=== PATIENT | male | born 1930 | race Caucasian/White ===

== ENCOUNTER 2018-03-04 11:20 | Inpatient (IN) ==
[2018-03-04 12:30] LABS: Basophils % 0.3 % (0.0-0.8); Eosinophils # 0.5 10*3/uL (0.0-0.87); Eosinophils % 4.3 % (0.00-10.9); Hematocrit 19.1 VOL% (42.0-52.0); Immature Granulocytes % 0.3 %; Immature Granulocytes Absolute 0.04 #; Lymphocytes # 2.1 10*3/uL (1.4-4.0); Lymphocytes % 16.8 % (21.2-54.2); Mean Corpuscular HGB Conc 27.2 GM/DL (32-36); Mean Corpuscular Hemoglobin 18 PG (27-34); Mean Corpuscular Volume 65.6 FL (87-102); Mean Platelet Volume 9.6 FL (9.6-12.0); Monocytes # 1.6 10*3/uL (0.11-0.8); NRBC # 0.02 10*3/uL; Neutrophils % 65.3 % (38.7-73.9); Platelet Count 308 T/CUMM (130-400); Red Blood Count 2.91 MC/CUMM (3.8-5.5); Red Cell Distribution Width 16.2 % (9.3-17.3); White Blood Count 12.2 T/CUMM (4-12)
[2018-03-04 12:35] LABS: Hemoglobin 5.2 GM/DL (14.0-18.0)
[2018-03-04 12:44] LABS: PT Patient Result 11.2 SECS; Partial Thromboplastin Time 25.1 SECS (0-40)
[2018-03-04 12:54] LABS: Lactic Acid 1.2 MMOL/L (0.4-2.0)
[2018-03-04] MEDS ORDERED: MEROPENEM 1,000 MG in SODIUM CHLORIDE 0.9% 100 ML IV STA (12:55)
[2018-03-04] MEDS ORDERED: SODIUM CHLORIDE 0.9% 1,000 ML IV STA (13:05)
[2018-03-04 13:24] LABS: Bilirubin,Total 0.6 MG/DL (0.2-1.0); Calcium 8.7 MG/DL (8.5-10.1); Potassium 4.2 MMOL/L (3.5-5.1); Total Protein 7.5 G/DL (6.4-8.3)
[2018-03-04] MEDS ORDERED: ONDANSETRON 4 MG/2 ML VIAL IV PRN (14:23)
[2018-03-04 14:25] LABS: Apearance,Urine Slightly Hazy (Clear); Bilirubin,Urine Negative (Negative); Blood, Urine Negative (Negative); Glucose,Urine (UA) Negative (Negative); Ketones,Urine Negative (Negative); Nitrite,Urine Negative (Negative); Protein,Urine Negative; RBC,Urine 1 /HPF (0-4); Urine Color Yellow (Yellow); Urine Specific Gravity 1.013 (1.001-1.035); Urine Urobilinogen < 2.0 EU/DL (0.2-1.0); WBC,Urine <1 /HPF (0-6)
[2018-03-04] MEDS ORDERED: ENOXAPARIN 30 MG/0.3 ML SYRINGE SUBCUT SCH (15:00)
[2018-03-04 15:05] LABS: Anisocytosis 1+; Poikilocytosis 1+
[2018-03-04 15:06] LABS: Hypochromasia 1+; Platelet Estimate Normal; Polychromasia Few; Spherocytes 1+
[2018-03-04] MEDS: LEVOFLOXACIN INJ 500 MG in PREMIX 1 EACH IV SCH (15:10)
[2018-03-04] MEDS: SODIUM CHLORIDE 0.9% 1,000 ML IV PRN (15:22)
[2018-03-04] MEDS ORDERED: DOXYLAMINE SUCCINATE 25 MG PO PRN (15:23)
[2018-03-04] MEDS ORDERED: NIFEdipine 10 MG CAPSULE PO PRN (15:27)
[2018-03-04] MEDS: PANTOPRAZOLE 40 MG TABLET PO SCH ×2 (15:43→20:40)
[2018-03-04] MEDS ORDERED: RACEPINEPHRINE 0.5 ML NEB RESP TX PRN (16:53)
[2018-03-04] MEDS: GABAPENTIN 400 MG CAPSULE PO SCH (20:40)
[2018-03-04] MEDS: ACETAMINOPHEN 325 MG TABLET PO PRN (20:41)
[2018-03-04] MEDS: MEROPENEM 1,000 MG in SODIUM CHLORIDE 0.9% 100 ML IV SCH (20:42)
[2018-03-04] MEDS: traMADol 50 MG TABLET PO PRN (20:43)
[2018-03-04] MEDS: LORazepam 1 MG TABLET PO PRN (20:43)
[2018-03-05 02:19] LABS: Hematocrit 24.9 VOL% (42.0-52.0); Hemoglobin 7.5 GM/DL (14.0-18.0)
[2018-03-05] MEDS: MEROPENEM 1,000 MG in SODIUM CHLORIDE 0.9% 100 ML IV SCH ×3 (04:31→21:01)
[2018-03-05] MEDS: SODIUM CHLORIDE 0.9% 1,000 ML IV PRN (05:15)
[2018-03-05 05:19] LABS: Basophils # 0.1 10*3/uL (0.0-0.2); Basophils % 0.5 % (0.0-0.8); Eosinophils # 0.5 10*3/uL (0.0-0.87); Eosinophils % 4.2 % (0.00-10.9); Hematocrit 26.8 VOL% (42.0-52.0); Hemoglobin 7.9 GM/DL (14.0-18.0); Immature Granulocytes % 0.5 %; Immature Granulocytes Absolute 0.06 #; Lymphocytes # 2.1 10*3/uL (1.4-4.0); Lymphocytes % 17.7 % (21.2-54.2); Mean Corpuscular HGB Conc 29.5 GM/DL (32-36); Mean Corpuscular Hemoglobin 21 PG (27-34); Mean Corpuscular Volume 72.6 FL (87-102); Mean Platelet Volume 9.4 FL (9.6-12.0); Monocytes # 1.2 10*3/uL (0.11-0.8); Monocytes % 10.5 % (1.7-12.7); NRBC # 0.03 10*3/uL; Neutrophils # 7.9 10*3/uL (1.4-7.4); Neutrophils % 66.6 % (38.7-73.9); Platelet Count 258 T/CUMM (130-400); Red Blood Count 3.69 MC/CUMM (3.8-5.5); Red Cell Distribution Width 21.2 % (9.3-17.3); White Blood Count 11.8 T/CUMM (4-12)
[2018-03-05 05:35] LABS: Lactic Acid 0.8 MMOL/L (0.4-2.0)
[2018-03-05 05:37] LABS: Calcium 8.4 MG/DL (8.5-10.1); Potassium 4.2 MMOL/L (3.5-5.1); Troponin I 0.016 NG/ML (0.00-0.045)
[2018-03-05] MEDS: FLUTICASONE 50 MCG NASAL SPRAY 16 GM BOTTLE BOTH NARES SCH (08:34)
[2018-03-05] MEDS: GABAPENTIN 400 MG CAPSULE PO SCH ×3 (08:34→20:59)
[2018-03-05] MEDS: SERTRALINE 50 MG TABLET PO SCH (08:35)
[2018-03-05] MEDS: PANTOPRAZOLE 40 MG TABLET PO SCH ×2 (08:35→21:00)
[2018-03-05] MEDS ORDERED: PANTOPRAZOLE 40 MG TABLET PO SCH (09:00)
[2018-03-05] MEDS: LEVOFLOXACIN INJ 500 MG in PREMIX 1 EACH IV SCH (15:02)
[2018-03-05] MEDS: traMADol 50 MG TABLET PO PRN (20:59)
[2018-03-05] MEDS: LORazepam 1 MG TABLET PO PRN (20:59)
[2018-03-05] MEDS: ACETAMINOPHEN 325 MG TABLET PO PRN (21:00)
[2018-03-06 03:59] LABS: Basophils # 0.1 10*3/uL (0.0-0.2); Basophils % 0.7 % (0.0-0.8); Eosinophils # 0.8 10*3/uL (0.0-0.87); Eosinophils % 6.7 % (0.00-10.9); Hematocrit 28.1 VOL% (42.0-52.0); Hemoglobin 8.2 GM/DL (14.0-18.0); Immature Granulocytes % 0.4 %; Immature Granulocytes Absolute 0.05 #; Lymphocytes # 2.2 10*3/uL (1.4-4.0); Lymphocytes % 18.9 % (21.2-54.2); Mean Corpuscular HGB Conc 29.2 GM/DL (32-36); Mean Corpuscular Hemoglobin 21 PG (27-34); Mean Corpuscular Volume 71.9 FL (87-102); Mean Platelet Volume 9.8 FL (9.6-12.0); Monocytes # 1.3 10*3/uL (0.11-0.8); Monocytes % 11.1 % (1.7-12.7); NRBC # 0.02 10*3/uL; Neutrophils # 7.1 10*3/uL (1.4-7.4); Neutrophils % 62.2 % (38.7-73.9); Platelet Count 273 T/CUMM (130-400); Red Blood Count 3.91 MC/CUMM (3.8-5.5); Red Cell Distribution Width 21.3 % (9.3-17.3); White Blood Count 11.4 T/CUMM (4-12)
[2018-03-06 04:24] LABS: Calcium 8.6 MG/DL (8.5-10.1); Osmolality,Calculated 276.7 MOS/KG (273-304); Potassium 4.3 MMOL/L (3.5-5.1)
[2018-03-06] MEDS: MEROPENEM 1,000 MG in SODIUM CHLORIDE 0.9% 100 ML IV SCH ×3 (05:36→20:58)
[2018-03-06] MEDS: GABAPENTIN 400 MG CAPSULE PO SCH ×4 (08:06→20:57)
[2018-03-06] MEDS: SERTRALINE 50 MG TABLET PO SCH (08:06)
[2018-03-06] MEDS: FLUTICASONE 50 MCG NASAL SPRAY 16 GM BOTTLE BOTH NARES SCH (08:06)
[2018-03-06] MEDS: PANTOPRAZOLE 40 MG TABLET PO SCH ×2 (08:06→20:52)
[2018-03-06] MEDS ORDERED: METHOCARBAMOL 500 MG TABLET PO PRN (13:41)
[2018-03-06] MEDS: LEVOFLOXACIN INJ 500 MG in PREMIX 1 EACH IV SCH (15:37)
[2018-03-06] MEDS: LORazepam 1 MG TABLET PO PRN (20:58)
[2018-03-07 05:46] LABS: Basophils # 0.1 10*3/uL (0.0-0.2); Basophils % 0.8 % (0.0-0.8); Eosinophils # 0.9 10*3/uL (0.0-0.87); Eosinophils % 8.1 % (0.00-10.9); Immature Granulocytes % 0.5 %; Immature Granulocytes Absolute 0.06 #; Lymphocytes # 1.7 10*3/uL (1.4-4.0); Lymphocytes % 15.6 % (21.2-54.2); Mean Corpuscular HGB Conc 28.6 GM/DL (32-36); Mean Corpuscular Hemoglobin 21 PG (27-34); Mean Corpuscular Volume 72.7 FL (87-102); Mean Platelet Volume 9.8 FL (9.6-12.0); Monocytes # 1.2 10*3/uL (0.11-0.8); Monocytes % 11.2 % (1.7-12.7); Neutrophils % 63.8 % (38.7-73.9); Platelet Count 282 T/CUMM (130-400); Red Blood Count 3.85 MC/CUMM (3.8-5.5); Red Cell Distribution Width 21.9 % (9.3-17.3); White Blood Count 11.1 T/CUMM (4-12)
[2018-03-07 06:08] LABS: Calcium 8.6 MG/DL (8.5-10.1); Potassium 4.1 MMOL/L (3.5-5.1)
[2018-03-07] MEDS: MEROPENEM 1,000 MG in SODIUM CHLORIDE 0.9% 100 ML IV SCH ×3 (06:35→22:32)
[2018-03-07] MEDS ORDERED: PROPOFOL 200 MG/20 ML VIAL IV ONE (09:21)
[2018-03-07] MEDS ORDERED: ETOMIDATE 40 MG/20 ML VIAL IV ONE (09:22)
[2018-03-07] MEDS: GABAPENTIN 400 MG CAPSULE PO SCH ×4 (10:28→22:34)
[2018-03-07] MEDS: PANTOPRAZOLE 40 MG TABLET PO SCH ×2 (10:28→22:33)
[2018-03-07] MEDS: SERTRALINE 50 MG TABLET PO SCH (10:28)
[2018-03-07] MEDS: FLUTICASONE 50 MCG NASAL SPRAY 16 GM BOTTLE BOTH NARES SCH (10:29)
[2018-03-07] MEDS: LEVOFLOXACIN INJ 500 MG in PREMIX 1 EACH IV SCH (15:44)
[2018-03-08] MEDS: MEROPENEM 1,000 MG in SODIUM CHLORIDE 0.9% 100 ML IV SCH ×3 (05:36→22:03)
[2018-03-08 06:16] LABS: Basophils # 0.1 10*3/uL (0.0-0.2); Basophils % 0.8 % (0.0-0.8); Eosinophils # 0.8 10*3/uL (0.0-0.87); Eosinophils % 7.6 % (0.00-10.9); Hemoglobin 8.5 GM/DL (14.0-18.0); Immature Granulocytes % 0.7 %; Immature Granulocytes Absolute 0.07 #; Lymphocytes # 1.8 10*3/uL (1.4-4.0); Mean Corpuscular HGB Conc 29.3 GM/DL (32-36); Mean Corpuscular Hemoglobin 21 PG (27-34); Mean Corpuscular Volume 71.8 FL (87-102); Mean Platelet Volume 9.4 FL (9.6-12.0); Monocytes # 1.2 10*3/uL (0.11-0.8); Monocytes % 11.6 % (1.7-12.7); Neutrophils # 6.5 10*3/uL (1.4-7.4); Neutrophils % 62.3 % (38.7-73.9); Platelet Count 302 T/CUMM (130-400); Red Blood Count 4.04 MC/CUMM (3.8-5.5); Red Cell Distribution Width 22.1 % (9.3-17.3); White Blood Count 10.4 T/CUMM (4-12)
[2018-03-08 06:43] LABS: Platelet Estimate Normal
[2018-03-08 06:44] LABS: Calcium 8.7 MG/DL (8.5-10.1); Hypochromasia Slight; Polychromasia Few
[2018-03-08] MEDS: GABAPENTIN 400 MG CAPSULE PO SCH ×4 (08:11→22:02)
[2018-03-08] MEDS: SERTRALINE 50 MG TABLET PO SCH (08:12)
[2018-03-08] MEDS: PANTOPRAZOLE 40 MG TABLET PO SCH ×2 (08:12→22:03)
[2018-03-08] MEDS: FLUTICASONE 50 MCG NASAL SPRAY 16 GM BOTTLE BOTH NARES SCH (08:19)
[2018-03-08] MEDS: MORPHINE 4 MG/1 ML VIAL IV PRN ×2 (10:46→17:19)
[2018-03-08] MEDS: BISACODYL 5 MG TABLET PO SCH ×3 (10:46→22:02)
[2018-03-08] MEDS: LEVOFLOXACIN INJ 500 MG in PREMIX 1 EACH IV SCH (15:20)
[2018-03-08 16:47] LABS: % Iron Saturation 3.9 % (18-50)
[2018-03-08 16:59] LABS: Folate > 24.0 NG/ML (5.4-24.0); Vitamin B12 730 PG/ML (211-911)
[2018-03-08] MEDS ORDERED: POLYETHYLENE GLYCOL POWDER 255 GM BOTTLE PO ONE (18:00)
[2018-03-08] MEDS ORDERED: MAGNESIUM CITRATE 300 ML BOTTLE PO ONE (21:00)
[2018-03-09] MEDS: BISACODYL 5 MG TABLET PO SCH (05:03)
[2018-03-09 05:16] LABS: Basophils # 0.1 10*3/uL (0.0-0.2); Basophils % 0.8 % (0.0-0.8); Eosinophils # 0.9 10*3/uL (0.0-0.87); Eosinophils % 8.9 % (0.00-10.9); Hematocrit 30.2 VOL% (42.0-52.0); Immature Granulocytes % 0.7 %; Immature Granulocytes Absolute 0.07 #; Lymphocytes # 1.9 10*3/uL (1.4-4.0); Lymphocytes % 18.7 % (21.2-54.2); Mean Corpuscular HGB Conc 28.8 GM/DL (32-36); Mean Corpuscular Hemoglobin 21 PG (27-34); Mean Corpuscular Volume 72.2 FL (87-102); Mean Platelet Volume 9.5 FL (9.6-12.0); Monocytes # 1.1 10*3/uL (0.11-0.8); Monocytes % 11.3 % (1.7-12.7); Neutrophils # 5.9 10*3/uL (1.4-7.4); Neutrophils % 59.6 % (38.7-73.9); Platelet Count 327 T/CUMM (130-400); Red Blood Count 4.18 MC/CUMM (3.8-5.5)
[2018-03-09] MEDS: MEROPENEM 1,000 MG in SODIUM CHLORIDE 0.9% 100 ML IV SCH (05:22)
[2018-03-09 05:32] LABS: Hemoglobin 8.8 GM/DL (14.0-18.0)
[2018-03-09 05:52] LABS: Anisocytosis 1+; Hypochromasia 1+; Microcytosis 1+; Spherocytes Slight
[2018-03-09 05:53] LABS: Ovalocytes Few; Platelet Estimate Normal; Tear Drop Cells Slight
[2018-03-09 08:56] VITALS: BP 117/60
[2018-03-09] MEDS ORDERED: LIDOCAINE 2% 5 ML VIAL ONE (09:00)
[2018-03-09] MEDS ORDERED: PHENYLEPHRINE 1 MG/10 ML SYRINGE IV ONE (09:00)
[2018-03-09] MEDS ORDERED: PROPOFOL 200 MG/20 ML VIAL IV ONE (09:00)
[2018-03-09] MEDS: FLUTICASONE 50 MCG NASAL SPRAY 16 GM BOTTLE BOTH NARES SCH (09:46)
[2018-03-09] MEDS: GABAPENTIN 400 MG CAPSULE PO SCH ×3 (09:46→13:26)
[2018-03-09] MEDS: PANTOPRAZOLE 40 MG TABLET PO SCH (09:46)
[2018-03-09] MEDS: SERTRALINE 50 MG TABLET PO SCH (09:46)
[2018-03-09] MEDS ORDERED: CARVEDILOL 3.125 MG TABLET PO SCH (21:00)
[2018-03-09] MEDS ORDERED: SIMVASTATIN 40 MG TABLET PO SCH (21:00)
[2018-03-10] MEDS ORDERED: LEVOFLOXACIN 500 MG TABLET PO SCH (09:00)
[2018-03-18 09:04] LABS: S. Pneumo Serotype 10A 31.6 mcg/mL (>=2.9); S. Pneumo Serotype 11A 4.6 mcg/mL (>=2.4); S. Pneumo Serotype 14 16.1 mcg/mL (>=7.0); S. Pneumo Serotype 15B 13.6 mcg/mL (>=3.3); S. Pneumo Serotype 17F 35.8 mcg/mL (>=7.8); S. Pneumo Serotype 18C 14.7 mcg/mL (>=3.3); S. Pneumo Serotype 19A 73.6 mcg/mL (>=17.1); S. Pneumo Serotype 19F 21.7 mcg/mL (>=15.0); S. Pneumo Serotype 2 1.5 mcg/mL (>=1.0); S. Pneumo Serotype 20 15.8 mcg/mL (>=1.3); S. Pneumo Serotype 22F 19.4 mcg/mL (>=7.2); S. Pneumo Serotype 23F 55.2 mcg/mL (>=8.0); S. Pneumo Serotype 3 9.3 mcg/mL (>=1.8); S. Pneumo Serotype 33F 7.6 mcg/mL (>=1.7); S. Pneumo Serotype 4 2.6 mcg/mL (>=0.6); S. Pneumo Serotype 6B 19.7 mcg/mL (>=4.7); S. Pneumo Serotype 7F 24.9 mcg/mL (>=3.2); S. Pneumo Serotype 8 24.2 mcg/mL (>=2.9); S. Pneumo Serotype 9N 27.9 mcg/mL (>=9.2)
== END 2018-03-09 15:34 | disposition home or self-care (01) | DRG 811 ==
LOC: EDUNIT# → EDBD → N.ED 11:20 → SUATTDRO 13:22 → N.EDINP 13:22 → N.CC 14:21 → N.5E 03-06 13:10
PROVIDERS: ADMIT Internal Medicine; ATTEND Internal Medicine

== ENCOUNTER 2019-12-25 09:00 | Inpatient (IN) ==
[2019-12-25] MEDS ORDERED: PANTOPRAZOLE 40 MG VIAL IV STA (09:21)
[2019-12-25] MEDS ORDERED: SODIUM CHLORIDE 0.9% 1,000 ML IV STA (09:21)
[2019-12-25 09:47] LABS: Basophils # 0.1 10*3/uL (0.0-0.2); Basophils % 0.8 % (0.0-0.8); Eosinophils # 0.5 10*3/uL (0.0-0.87); Eosinophils % 5.1 % (0.00-10.9); Hematocrit 20.1 VOL% (42.0-52.0); Immature Granulocytes % 0.6 %; Immature Granulocytes Absolute 0.06 #; Lymphocytes # 1.4 10*3/uL (1.4-4.0); Lymphocytes % 13.6 % (21.2-54.2); Mean Corpuscular HGB Conc 27.9 GM/DL (32-36); Mean Corpuscular Volume 64.8 FL (87-102); Mean Platelet Volume 9.3 FL (9.6-12.0); Monocytes % 11.3 % (1.7-12.7); Neutrophils % 68.6 % (38.7-73.9); Platelet Count 295 T/CUMM (130-400); Red Cell Distribution Width 17.1 % (9.3-17.3); White Blood Count 10.6 T/CUMM (4-12)
[2019-12-25 09:54] LABS: Hemoglobin 5.6 GM/DL (14.0-18.0)
[2019-12-25] MEDS ORDERED: SODIUM CHLORIDE 0.9% 1,000 ML IV PRN (09:54)
[2019-12-25 09:57] LABS: PT Patient Result 11.2 SECS (9.8-11.9); Partial Thromboplastin Time 27.1 SECS (23.9-33.8)
[2019-12-25 10:04] LABS: Albumin 3.1 G/DL (3.4-5.0); Bilirubin,Total 0.7 MG/DL (0.2-1.0); Calcium 8.9 MG/DL (8.5-10.1); Total Protein 6.9 G/DL (6.4-8.3)
[2019-12-25 10:19] LABS: Hypochromasia 2+; Microcytosis 2+; Ovalocytes Few
[2019-12-25 10:20] LABS: Tear Drop Cells Slight
[2019-12-25 10:21] LABS: Platelet Estimate Normal; Polychromasia Slight
[2019-12-25] MEDS ORDERED: DEXTROSE 50% 25 GM/50 ML VIAL IV PRN (10:49)
[2019-12-25] MEDS ORDERED: ONDANSETRON 4 MG/2 ML VIAL IV PRN (10:49)
[2019-12-25] MEDS ORDERED: GLUCAGON 1 MG VIAL IM PRN (10:49)
[2019-12-25 17:46] LABS: Hematocrit 26.5 VOL% (42.0-52.0); Hemoglobin 7.8 GM/DL (14.0-18.0)
[2019-12-25] MEDS: carvediloL 3.125 MG TABLET PO SCH (20:40)
[2019-12-25] MEDS: COENZYME Q10 100 MG CAPSULE PO SCH (20:40)
[2019-12-25] MEDS: ACETAMINOPHEN 325 MG TABLET PO PRN (20:40)
[2019-12-25] MEDS: BACLOFEN 10 MG TABLET PO SCH (20:41)
[2019-12-25] MEDS: SERTRALINE 50 MG TABLET PO SCH (20:41)
[2019-12-25] MEDS: PANTOPRAZOLE 40 MG VIAL IV SCH (20:41)
[2019-12-25] MEDS: GABAPENTIN 400 MG CAPSULE PO SCH (20:41)
[2019-12-26 05:22] LABS: Basophils # 0.1 10*3/uL (0.0-0.2); Basophils % 0.6 % (0.0-0.8); Eosinophils # 0.4 10*3/uL (0.0-0.87); Eosinophils % 3.5 % (0.00-10.9); Hematocrit 25.4 VOL% (42.0-52.0); Hemoglobin 7.6 GM/DL (14.0-18.0); Immature Granulocytes % 0.4 %; Immature Granulocytes Absolute 0.05 #; Lymphocytes # 1.5 10*3/uL (1.4-4.0); Lymphocytes % 13.4 % (21.2-54.2); Mean Corpuscular HGB Conc 29.9 GM/DL (32-36); Mean Platelet Volume 9.6 FL (9.6-12.0); Monocytes % 12.4 % (1.7-12.7); NRBC # 0.02 10*3/uL; Neutrophils % 69.7 % (38.7-73.9); Platelet Count 258 T/CUMM (130-400); Red Blood Count 3.63 MC/CUMM (3.8-5.5); Red Cell Distribution Width 24.2 % (9.3-17.3); White Blood Count 11.3 T/CUMM (4-12)
[2019-12-26 05:41] LABS: Hypochromasia 1+; Microcytosis 2+; Ovalocytes Few; Polychromasia Slight; Spherocytes Slight; Target Cells Slight
[2019-12-26 05:42] LABS: Platelet Estimate Normal
[2019-12-26 05:50] LABS: % Iron Saturation 4.8 % (18-50); Ferritin 9.5 ng/ml (26-388)
[2019-12-26 05:54] LABS: Albumin 2.8 G/DL (3.4-5.0); Bilirubin,Total 1.3 MG/DL (0.2-1.0); Calcium 8.4 MG/DL (8.5-10.1); Risk Ratio 3.19; Thyroid Stimulating Hormone 0.393 uIU/ml (0.358-3.74); Total Protein 6.5 G/DL (6.4-8.3); VLDL CHOLESTEROL 18.2 MG/DL
[2019-12-26] MEDS ORDERED: SODIUM CHLORIDE 0.9% 1,000 ML IV PRN (06:43)
[2019-12-26] MEDS ORDERED: LACTATED RINGERS 1,000 ML IV SCH (07:00)
[2019-12-26] MEDS ORDERED: PANTOPRAZOLE 40 MG TABLET PO SCH (09:00)
[2019-12-26] MEDS ORDERED: LIDOCAINE 2% 5 ML VIAL ONE (09:00)
[2019-12-26] MEDS ORDERED: propofoL 200 MG/20 ML VIAL IV ONE (09:00)
[2019-12-26 09:55] LABS: Folate > 24.0 NG/ML (5.4-24.0); Vitamin B12 748 PG/ML (211-911)
[2019-12-26] MEDS: COENZYME Q10 100 MG CAPSULE PO SCH ×2 (10:27→21:31)
[2019-12-26] MEDS: carvediloL 3.125 MG TABLET PO SCH ×2 (10:27→21:31)
[2019-12-26] MEDS: GABAPENTIN 400 MG CAPSULE PO SCH ×3 (10:28→21:30)
[2019-12-26] MEDS: PANTOPRAZOLE 40 MG VIAL IV SCH ×2 (10:28→21:35)
[2019-12-26] MEDS: SIMVASTATIN 40 MG TABLET PO SCH (10:28)
[2019-12-26] MEDS: CHOLECALCIFEROL 5,000 UNIT TABLET PO SCH (10:28)
[2019-12-26] MEDS: FLUTICASONE 50 MCG NASAL SPRAY 16 GM BOTTLE BOTH NARES SCH (10:29)
[2019-12-26] MEDS: ACETAMINOPHEN 325 MG TABLET PO PRN (13:31)
[2019-12-26] MEDS ORDERED: FUROSEMIDE 40 MG/4 ML VIAL IV SCH (14:00)
[2019-12-26 15:17] LABS: Hematocrit 29.7 VOL% (42.0-52.0); Hemoglobin 9.2 GM/DL (14.0-18.0)
[2019-12-26] MEDS ORDERED: POLYETHYLENE GLYCOL POWDER 17 GM PACK PO ONE (16:09)
[2019-12-26] MEDS ORDERED: IRON SUCROSE 300 MG in SODIUM CHLORIDE 0.9% 100 ML IV ONE (21:00)
[2019-12-26] MEDS: SERTRALINE 50 MG TABLET PO SCH (21:30)
[2019-12-26] MEDS: BACLOFEN 10 MG TABLET PO SCH (21:30)
[2019-12-26 22:38] LABS: % Iron Saturation 3.9 % (18-50); Ferritin 6.3 ng/ml (26-388)
[2019-12-27 05:44] LABS: Basophils # 0.1 10*3/uL (0.0-0.2); Basophils % 0.6 % (0.0-0.8); Eosinophils # 0.3 10*3/uL (0.0-0.87); Eosinophils % 2.3 % (0.00-10.9); Hematocrit 30.6 VOL% (42.0-52.0); Hemoglobin 9.4 GM/DL (14.0-18.0); Immature Granulocytes % 0.8 %; Immature Granulocytes Absolute 0.11 #; Lymphocytes # 1.4 10*3/uL (1.4-4.0); Lymphocytes % 9.7 % (21.2-54.2); Mean Corpuscular HGB Conc 30.7 GM/DL (32-36); Mean Corpuscular Volume 72.7 FL (87-102); Mean Platelet Volume 9.5 FL (9.6-12.0); Monocytes % 13.3 % (1.7-12.7); Neutrophils % 73.3 % (38.7-73.9); Platelet Count 246 T/CUMM (130-400); Red Blood Count 4.21 MC/CUMM (3.8-5.5); Red Cell Distribution Width 25.7 % (9.3-17.3); White Blood Count 14.2 T/CUMM (4-12)
[2019-12-27 06:04] LABS: Albumin 2.8 G/DL (3.4-5.0); Bilirubin,Total 1.7 MG/DL (0.2-1.0); Calcium 8.4 MG/DL (8.5-10.1); Osmolality,Calculated 263.5 MOS/KG (273-304); Total Protein 6.8 G/DL (6.4-8.3)
[2019-12-27 06:09] LABS: Hypochromasia 1+; Microcytosis 1+; Platelet Estimate Adequate
[2019-12-27] MEDS ORDERED: IRON SUCROSE 300 MG in SODIUM CHLORIDE 0.9% 100 ML IV ONE (08:00)
[2019-12-27] MEDS: PANTOPRAZOLE 40 MG VIAL IV SCH ×2 (08:47→20:57)
[2019-12-27] MEDS: ACETAMINOPHEN 325 MG TABLET PO PRN ×2 (08:48→20:54)
[2019-12-27] MEDS: GABAPENTIN 400 MG CAPSULE PO SCH ×4 (08:49→20:53)
[2019-12-27] MEDS: COENZYME Q10 100 MG CAPSULE PO SCH ×2 (08:49→20:55)
[2019-12-27] MEDS: SIMVASTATIN 40 MG TABLET PO SCH (08:49)
[2019-12-27] MEDS: CHOLECALCIFEROL 5,000 UNIT TABLET PO SCH (08:49)
[2019-12-27] MEDS: FLUTICASONE 50 MCG NASAL SPRAY 16 GM BOTTLE BOTH NARES SCH (08:50)
[2019-12-27] MEDS: POLYETHYLENE GLYCOL POWDER 17 GM PACK PO SCH (08:50)
[2019-12-27] MEDS: carvediloL 3.125 MG TABLET PO SCH ×2 (08:50→20:52)
[2019-12-27] MEDS: methylPREDNISolone SOD SUC 40 MG/1 ML VIAL IV SCH (15:02)
[2019-12-27] MEDS: cefTRIAXone 1,000 MG in SYRINGE 1 EACH IV SCH (15:02)
[2019-12-27] MEDS: SERTRALINE 50 MG TABLET PO SCH (20:54)
[2019-12-27] MEDS: BACLOFEN 10 MG TABLET PO SCH (20:55)
[2019-12-28] MEDS: methylPREDNISolone SOD SUC 40 MG/1 ML VIAL IV SCH ×2 (03:00→21:12)
[2019-12-28 05:39] LABS: Basophils % 0.2 % (0.0-0.8); Eosinophils % 0.1 % (0.00-10.9); Hemoglobin 9.2 GM/DL (14.0-18.0); Immature Granulocytes % 0.8 %; Immature Granulocytes Absolute 0.13 #; Lymphocytes % 5.9 % (21.2-54.2); Mean Corpuscular HGB Conc 30.7 GM/DL (32-36); Mean Corpuscular Volume 74.3 FL (87-102); Mean Platelet Volume 9.6 FL (9.6-12.0); Platelet Count 250 T/CUMM (130-400); Red Blood Count 4.04 MC/CUMM (3.8-5.5); Red Cell Distribution Width 26.2 % (9.3-17.3); White Blood Count 16.3 T/CUMM (4-12)
[2019-12-28 05:54] LABS: Albumin 2.5 G/DL (3.4-5.0); Bilirubin,Total 0.9 MG/DL (0.2-1.0); Calcium 8.4 MG/DL (8.5-10.1); Total Protein 6.6 G/DL (6.4-8.3)
[2019-12-28 06:01] LABS: Hypochromasia Slight; Microcytosis 1+; Platelet Estimate Normal
[2019-12-28] MEDS ORDERED: MEPERIDINE 50 MG/1 ML VIAL IM ONE (07:00)
[2019-12-28] MEDS ORDERED: PROMETHAZINE 25 MG/1 ML VIAL IM ONE (07:00)
[2019-12-28] MEDS ORDERED: LIDOCAINE 2% VISCOUS 100 ML BOTTLE SWISH/SPIT ONE (07:30)
[2019-12-28] MEDS ORDERED: MIDAZOLAM 2 MG/2 ML VIAL IV ONE (07:30)
[2019-12-28] MEDS ORDERED: LIDOCAINE 1% 20 ML VIAL MISC INJ ONE (07:30)
[2019-12-28] MEDS ORDERED: LIDOCAINE 2% 20 ML VIAL RESP TX ONE (07:30)
[2019-12-28] MEDS: CHOLECALCIFEROL 5,000 UNIT TABLET PO SCH (10:35)
[2019-12-28] MEDS: GABAPENTIN 400 MG CAPSULE PO SCH ×3 (10:35→21:11)
[2019-12-28] MEDS: POLYETHYLENE GLYCOL POWDER 17 GM PACK PO SCH (10:35)
[2019-12-28] MEDS: SIMVASTATIN 40 MG TABLET PO SCH (10:36)
[2019-12-28] MEDS: COENZYME Q10 100 MG CAPSULE PO SCH ×2 (10:36→21:12)
[2019-12-28] MEDS: carvediloL 3.125 MG TABLET PO SCH ×2 (10:36→21:18)
[2019-12-28] MEDS: FLUTICASONE 50 MCG NASAL SPRAY 16 GM BOTTLE BOTH NARES SCH (10:37)
[2019-12-28] MEDS: cefTRIAXone 1,000 MG in SYRINGE 1 EACH IV SCH (10:37)
[2019-12-28] MEDS: PANTOPRAZOLE 40 MG VIAL IV SCH ×2 (10:37→21:20)
[2019-12-28] MEDS ORDERED: AZITHROMYCIN INJ 500 MG in SODIUM CHLORIDE 0.9% 250 ML IV SCH (12:00)
[2019-12-28] MEDS: AZITHROMYCIN 250 MG TABLET PO SCH (15:38)
[2019-12-28] MEDS: ACETAMINOPHEN 325 MG TABLET PO PRN (21:11)
[2019-12-28] MEDS: BACLOFEN 10 MG TABLET PO SCH (21:12)
[2019-12-28] MEDS: SERTRALINE 50 MG TABLET PO SCH (21:12)
[2019-12-29 04:48] LABS: Basophils % 0.1 % (0.0-0.8); Hematocrit 30.3 VOL% (42.0-52.0); Hemoglobin 9.2 GM/DL (14.0-18.0); Immature Granulocytes % 0.9 %; Immature Granulocytes Absolute 0.15 #; Lymphocytes # 0.7 10*3/uL (1.4-4.0); Lymphocytes % 3.9 % (21.2-54.2); Mean Corpuscular HGB Conc 30.4 GM/DL (32-36); Mean Corpuscular Volume 73.5 FL (87-102); Mean Platelet Volume 9.7 FL (9.6-12.0); Monocytes % 6.4 % (1.7-12.7); Neutrophils % 88.7 % (38.7-73.9); Platelet Count 268 T/CUMM (130-400); Red Blood Count 4.12 MC/CUMM (3.8-5.5); White Blood Count 16.6 T/CUMM (4-12)
[2019-12-29 05:06] LABS: Albumin 2.3 G/DL (3.4-5.0); Bilirubin,Total 0.5 MG/DL (0.2-1.0); Calcium 8.5 MG/DL (8.5-10.1); Osmolality,Calculated 274.7 MOS/KG (273-304); Total Protein 6.4 G/DL (6.4-8.3)
[2019-12-29 05:31] LABS: Hypochromasia 1+; Lymphocytes 5 % (20-55); Segmented Neutrophils 88 % (50-85); Total Cells Counted 100
[2019-12-29 05:32] LABS: Elliptocytes Few; Microcytosis 2+; Polychromasia Slight
[2019-12-29 05:33] LABS: Platelet Estimate Normal
[2019-12-29] MEDS: POLYETHYLENE GLYCOL POWDER 17 GM PACK PO SCH (10:07)
[2019-12-29] MEDS: GABAPENTIN 400 MG CAPSULE PO SCH (10:08)
[2019-12-29] MEDS: cefTRIAXone 1,000 MG in SYRINGE 1 EACH IV SCH (10:08)
[2019-12-29] MEDS: COENZYME Q10 100 MG CAPSULE PO SCH (10:08)
[2019-12-29] MEDS: methylPREDNISolone SOD SUC 40 MG/1 ML VIAL IV SCH (10:09)
[2019-12-29] MEDS: AZITHROMYCIN 250 MG TABLET PO SCH (10:09)
[2019-12-29] MEDS: SIMVASTATIN 40 MG TABLET PO SCH (10:09)
[2019-12-29] MEDS: carvediloL 3.125 MG TABLET PO SCH (10:09)
[2019-12-29] MEDS: CHOLECALCIFEROL 5,000 UNIT TABLET PO SCH (10:09)
[2019-12-29] MEDS: PANTOPRAZOLE 40 MG VIAL IV SCH (10:09)
[2019-12-29] MEDS: FLUTICASONE 50 MCG NASAL SPRAY 16 GM BOTTLE BOTH NARES SCH (10:10)
[2019-12-29] MEDS ORDERED: FERROUS GLUCONATE 324 MG TABLET PO SCH (10:30)
[2019-12-29 12:07] VITALS: BP 145/36
== END 2019-12-29 11:42 | disposition home or self-care (01) | DRG 369 ==
LOC: N.ED 09:00 → N.EDINP 10:49 → N.5E 15:42
PROVIDERS: ADMIT Internal Medicine; ATTEND Internal Medicine